=== PATIENT | female | born 1935 | race Caucasian/White ===

== ENCOUNTER 2016-05-14 04:56 | Emergency (ER) | payer SELFPAY ==
[~2016-05-14] VITALS: Ht 152.4 cm; Wt 65.7 kg
[2016-05-14 05:01] VITALS: BP 137/85
== END 2016-05-14 06:55 | disposition left against medical advice (07) ==
LOC: EME 04:56
DX: F41.0 Panic disorder [episodic paroxysmal anxiety] (principal); Z53.21 Procedure and treatment not carried out due to patient leaving prior to being seen by health care provider